=== PATIENT | female | born 1960 | race Caucasian/White ===

== ENCOUNTER → 2017-06-07 | Outpatient (CLI) | payer BC ==
--- NOTE | 2017-06-07 12:09 | EST ---
EXERCISE STRESS AGE: 56 SEX: F HT: 61" WT: 130 PROTOCOL: Joseph Stress Test STAGE: II DURATION OF EXERCISE: 7:36 HEART RATE REST: 80 BLOOD PRESSURE REST: 117/81 MAXIMUM HEART RATE ACHIEVED: 163 MAXIMUM BLOOD PRESSURE: 115/67 85% MPHR: 140 100% MPHR: 165 INDICATIONS: Chest pain. CLINICAL INFORMATION: Baseline rhythm is a sinus mechanism, rate of 80, normal axis and intervals, nonspecific ST-T wave changes. Baseline blood pressure 117/81 mmHg. Patient exercised on Joseph protocol for 7 minutes 36 seconds reaching peak rate of 163 beats per minute, which is equal to 98% maximum predicted heart rate. Peak blood pressure 115/67 mmHg. Test was terminated due to fatigue. There was no chest pain. Electrocardiograph monitoring revealed no evidence of diagnostic ischemic ST deviation. CONCLUSION: 1. Average exercise tolerance. 2. Nondiagnostic electrocardiographic stress testing secondary to baseline EKG abnormality. MMODL / IJN: [id number] /
--- NOTE | 2017-06-08 09:59 | MM ---
Reason for exam: screening (asymptomatic). Last mammogram was performed 1 year and 10 months ago. History: Patient is postmenopausal. Family history of premenopausal breast cancer in sister at age 43. Physical Findings: A clinical breast exam by your physician is recommended on an annual basis and results should be correlated with mammographic findings. MG Screening Mammo w CAD Bilateral CC and MLO view(s) were taken. Prior study comparison: July 23, 2015, bilateral MG 3d work up w/cad JUSTO. July 11, 2015, bilateral MG screening mammo w CAD. There are scattered fibroglandular densities. There is no discrete abnormality. ASSESSMENT: Negative, BI-RAD 1 RECOMMENDATION: Routine screening mammogram of both breasts in 1 year.
== END | disposition home or self-care (01) ==
LOC: RADMAMWWP 10:02
PROVIDERS: ATTEND Family Medicine
DX: Z12.31 Encounter for screening mammogram for malignant neoplasm of breast (principal); R07.89 Other chest pain
CPT/HCPCS: 77067; 93017

== ENCOUNTER → 2018-06-21 | Outpatient (CLI) | payer BC ==
--- NOTE | 2018-06-21 10:33 | BD ---
EXAMINATION TYPE: Axial Bone Density DATE OF EXAM: 06/21/2018 Comparison: Prior DEXA bone scan July 11, 2015 CLINICAL HISTORY: Age-related osteoporosis per order. Height: 135 Weight: 61 FRAX RISK QUESTIONS: Alcohol (3 or more units per day): no Family History (Parent hip fracture): no Glucocorticoids (More than 3mos): no (Ex: prednisone, prednisolone, methylprednisolone, dexamethasone, and hydrocortisone). History of Fracture in Adulthood: no Secondary Osteoporosis: 1. Type 1 Diabetes: no 2. Hyperthyroidism: no 3. Menopause before 45: no, at age 46 4. Malnutrition: no 5. Chronic liver disease: no Rheumatoid Arthritis: no Current Tobacco Use: no RISK FACTORS HISTORY OF: History of Wrist Fracture: patient thinks bilateral "arms When: as very young child Family History of Osteoporosis: not to patient's knowledge Active: yes Diet low in dairy products/other sources of calcium: no Postmenopausal woman: yes Take estrogen and/or progesterone medications: no Lost more than 2 inches in height since high school: no Frequent falls: no Poor Health: no Hyperparathyroidism: no Adrenal Insufficiency: no MEDICATIONS: Thyroid Medications: no Osteoporosis Medications: not now Which medication: unsure How Long: about 6 months on & off Additional Medications: Vitamin D Additional History: EXAM MEASUREMENTS: Bone mineral densitometry was performed using the [employer] System. Bone mineral density as measured about the Lumbar spine is: ----- L1-L4(G/cm2): 0.948 T Score Values are as follows: ----- L2: -2.6 ----- L3: -1.6 ----- L4: -2.2 ----- L1-L4: -1.9 Bone mineral density has: Decreased -3.3% since study of: 07/11/2015 Bone mineral density about the R hip (g/cm2): 0.644 Bone mineral density about the L hip (g/cm2): 0.659 T Score values are as follows: -----R Neck: -2.8 -----L Neck: -2.7 -----R Total: -2.3 -----L Total: -2.3 Bone mineral density has: Increased 0.1% since study of: 07/11/2015 IMPRESSION: Osteoporosis (T Score less than -2.5) femoral neck level in both hips. There is increased fracture risk and therapy is usually indicated based on age. Re-Screen 1-2 years. NOTE: T-SCORE=SD OF THE YOUNG ADULT MEAN.
--- NOTE | 2018-06-21 10:41 | US ---
EXAMINATION TYPE: US abdomen complete DATE OF EXAM: 06/21/2018 COMPARISON: NONE CLINICAL HISTORY: K80.20 CALCULUS OF GALLBLADDERW/O OBSTRUCTION. EXAM MEASUREMENTS: Liver Length: 12.2 cm Gallbladder Wall: 0.1 cm CBD: 0.3 cm Spleen: 7.8 cm Right Kidney: 10.5 x 5.1 x 4.1 cm Left Kidney: 9.5 x 4.9 x 4.8 cm Pancreas: Tail obscured by overlying bowel gas Liver: wnl Gallbladder: large gallstone with some probable small stones as well, no wall thickening Evidence for sonographic Howe's sign: CBD: wnl Spleen: not well visualized, obscured by tight intercostal spaces and overlying bowel gas Right Kidney: wnl Left Kidney: echogenic foci, does not shadow measuring 0.4 x 0.2 x 0.5cm Upper IVC: wnl Abd Aorta: wnl The visualized liver is homogenous. The intrahepatic portion of the IVC and visualized abdominal aor ta are within normal limits. Gallbladder is seen with large shadowing mobile gallstone. No pericholec ystic fluid or abnormal gallbladder wall thickening is present. Common bile duct is unremarkable. Th e visualized portions of the pancreas are homogenous. The spleen is unremarkable. Kidneys are symme tric and free of hydronephrosis. Left kidney shows 4 mm nonshadowing hyperechoic focus could reflect nonobstructing renal calculus. IMPRESSION: Single gallstone without secondary ultrasound evidence for acute cholecystitis.
--- NOTE | 2018-06-22 10:24 | MM ---
Reason for exam: screening (asymptomatic). Last mammogram was performed 1 year ago. History: Patient is postmenopausal. Family history of premenopausal breast cancer in sister at age 43. Physical Findings: A clinical breast exam by your physician is recommended on an annual basis and results should be correlated with mammographic findings. MG Screening Mammo w CAD Bilateral CC and MLO view(s) were taken. Prior study comparison: June 07, 2017, bilateral MG screening mammo w CAD. July 23, 2015, bilateral MG 3d work up w/cad [facility]O. There are scattered fibroglandular densities. No significant changes when compared with prior studies. ASSESSMENT: Benign, BI-RAD 2 RECOMMENDATION: Routine screening mammogram of both breasts in 1 year.
== END ==
LOC: RADUSWWP 08:09
PROVIDERS: ATTEND Family Medicine
DX: Z12.31 Encounter for screening mammogram for malignant neoplasm of breast (principal); M81.0 Age-related osteoporosis without current pathological fracture; K80.20 Calculus of gallbladder without cholecystitis without obstruction
CPT/HCPCS: 76700; 77067; 77080

== ENCOUNTER → 2018-06-29 | Outpatient (CLI) | payer BC ==
--- NOTE | 2018-06-30 08:56 | NM ---
Nuclear medicine hepatobiliary scan. HISTORY: Pain. DOSAGE: The patient received 8 ounces of ensure plus and 5.2 mCi of Technetium 99m Choletec. FINDINGS: There is normal hepatic extraction. The gallbladder is seen by 90 minutes. There is bilia ry to bowel clearance by 20 minutes. Ejection fraction is unable to be calculated. IMPRESSION: 1. There is delay in visualization of the gallbladder correlate for cholecystitis.
== END ==
LOC: RADNMMAIN 14:39
PROVIDERS: ATTEND Family Medicine
DX: K80.20 Calculus of gallbladder without cholecystitis without obstruction (principal)
CPT/HCPCS: 78226; A9537

== ENCOUNTER → 2020-09-05 | Outpatient (CLI) | payer BC ==
--- NOTE | 2020-09-06 13:15 | MM ---
Reason for exam: screening (asymptomatic). Last mammogram was performed 2 years and 2 months ago. History: Patient is postmenopausal. Family history of premenopausal breast cancer in sister at age 43. Physical Findings: A clinical breast exam by your physician is recommended on an annual basis and results should be correlated with mammographic findings. MG Screening Mammo w CAD Bilateral CC and MLO view(s) were taken. Prior study comparison: June 21, 2018, bilateral MG screening mammo w CAD. June 07, 2017, bilateral MG screening mammo w CAD. The breast tissue is heterogeneously dense. This may lower the sensitivity of mammography. There is no discrete abnormality. No significant changes when compared with prior studies. ASSESSMENT: Negative, BI-RAD 1 RECOMMENDATION: Routine screening mammogram of both breasts in 1 year.
== END | disposition home or self-care (01) ==
LOC: RADMAMWWP 09:53
PROVIDERS: ATTEND Family Medicine
DX: Z12.31 Encounter for screening mammogram for malignant neoplasm of breast (principal); Z78.0 Asymptomatic menopausal state; Z80.3 Family history of malignant neoplasm of breast
CPT/HCPCS: 77067

== ENCOUNTER → 2021-07-21 | Outpatient (CLI) | payer BC ==
--- NOTE | 2021-07-21 19:31 | BD ---
EXAMINATION TYPE: Axial Bone Density DATE OF EXAM: 07/21/2021 COMPARISON: 2019 CLINICAL HISTORY: 60 year old Female. ICD-10 CODE: Z13.820 Height: 61 Weight: 129.0 FRAX RISK QUESTIONS: Alcohol (3 or more units per day): no Family History (Parent hip fracture): no Glucocorticoids (More than 3mos): no (Ex: prednisone, prednisolone, methylprednisolone, dexamethasone, and hydrocortisone). History of Fracture in Adulthood: no Secondary Osteoporosis: 1. Type 1 Diabetes: no 2. Hyperthyroidism: no 3. Menopause before 45: no 4. Malnutrition: no 5. Chronic liver disease: no Rheumatoid Arthritis: no Current Tobacco Use: no RISK FACTORS HISTORY OF: History of Wrist Fracture: yes When: as a child Surgery to Spine/Hip(right/left)/Wrist (right/left): no Family History of Osteoporosis: no Active: yes Diet low in dairy products/other sources of calcium: no Postmenopausal woman: yes Lost more than 2 inches in height since high school: no Additional History: EXAM MEASUREMENTS: Bone mineral densitometry was performed using the [employer] System. Bone mineral density as measured about the Lumbar spine is: ----- L1-L4(G/cm2): 0.952 T Score Values are as follows: ----- L1: -1.9 ----- L2: -2.4 ----- L3: -1.5 ----- L4: -1.9 ----- L1-L4: -1.9 Bone mineral density has: increased 2.0 % since study of: 06.21.2018 Bone mineral density about the R hip (g/cm2): 0.646 Bone mineral density about the L hip (g/cm2): 0.658 T Score values are as follows: -----R Neck: -2.8 -----L Neck: -2.7 -----R Total: -2.3 -----L Total: -2.2 Bone mineral density has: increased 0.6 % since study of: 06.21.2018 FRAX%s: The graph provided illustrates a 13.3% chance for a major osteoporotic fx and a 3.2% chance f or the hips probability for fx in 10 years time. IMPRESSION: Osteoporosis (T Score less than -2.5). There is increased fracture risk and therapy is usually indicated based on age. Re-Screen 1-2 years. NOTE: T-SCORE=SD OF THE YOUNG ADULT MEAN.
== END | disposition home or self-care (01) ==
LOC: RADBDWWP 09:51
PROVIDERS: ATTEND Family Medicine
DX: M81.0 Age-related osteoporosis without current pathological fracture (principal)
CPT/HCPCS: 77080

== ENCOUNTER 2022-07-07 06:47 | Day surgery (SDC) | payer BC ==
[2022-07-06 10:58] VITALS: BMI 24.5
[~2022-07-07 06:47] MED LIST: LACTATED RINGERS 1,000 ML IV SCH; LIDOCAINE 1% (10MG/ML) FOR IV START INTRADERMA PRN
[2022-07-07 07:23] VITALS: RESP 16; TEMP 97.3
[2022-07-07] MEDS ORDERED: PROPOFOL 10 MG/ML 20 ML VIAL IV ONE (08:18)
--- NOTE | 2022-07-07 08:37 | P.PCN ---
Date of Procedure: 07/07/22 Procedure(s) Performed: BRIEF HISTORY: Patient is a 61-year-old pleasant white female scheduled for an elective colonoscopy as a part of screening for colon cancer and family history of colon cancer. Father was diagnosed with colon cancer at age 60. PROCEDURE PERFORMED: Colonoscopy. PREOPERATIVE DIAGNOSIS: Screening for colon cancer/family history of colon cancer. IV sedation per Anesthesia. PROCEDURE: After informed consent was obtained, the patient, was brought into the endoscopy unit. IV sedation was administered by Anesthesia under continuous monitoring. Digital rectal examination was normal. Initially the Olympus CF-160 flexible video colonoscope was then inserted in the rectum, gradually advanced into the cecum without any difficulty. Careful examination was performed as the scope was gradually being withdrawn. Ileocecal valve and the appendiceal orifice were visualized and appeared normal. Prep was excellent. Mucosa of the cecum, ascending colon, transverse colon, descending colon, sigmoid colon, and rectum appeared normal. Retroflexion was performed in the rectum and no lesions were seen. The patient tolerated the procedure well. IMPRESSION: Normal-appearing colon from rectum to cecum with no evidence of colorectal neoplasia. RECOMMENDATIONS: Findings of this examination were discussed with the patient as well as his family. She was advised to have a repeat screening colonoscopy every 5 years because of the family history of colon cancer..
[2022-07-07 08:56] VITALS: BP 104/57; PULSE 98
== END 2022-07-07 09:12 ==
LOC: ORWHC2ENDO 06:47
PROVIDERS: ATTEND Internal Medicine Gastroenterology
DX: Z12.11 Encounter for screening for malignant neoplasm of colon (principal); Z80.0 Family history of malignant neoplasm of digestive organs; Z88.8 Allergy status to other drugs, medicaments and biological substances
CPT/HCPCS: 45378; J2704

== ENCOUNTER → 2023-11-09 | Outpatient (CLI) | payer BC ==
--- NOTE | 2023-11-14 16:03 | MM ---
Reason for Exam: Screening (asymptomatic). Last mammogram was performed 1 year(s) and 5 month(s) ago. Patient History: Menarche at age 13. First Full-Term at age 19. Postmenopausal. Sister had breast cancer, age 43. Risk Values: Shante 5 year model risk: 2.8%. NCI Lifetime model risk: 12.5%. Prior Study Comparison: 06/21/2018 Bilateral Screening Mammogram, [facility]. 09/05/2020 Bilateral Screening Mammogram, [facility]. 05/29/2022 Bilateral MG screening mammo w CAD, [facility]. Tissue Density: There are scattered areas of fibroglandular density. Findings: Analyzed By CAD. The pattern is symmetrical. Pattern appears symmetrical and stable. No interval change. No suspicious groups of microcalcifications, spiculated or lobular masses, architectural distortion or other secondary signs of malignancy are mammographically apparent. Overall Assessment: Benign, BI-RAD 2 Management: Screening Mammogram of both breasts in 1 year. A negative mammogram report should not preclude additional follow up of suspicious palpable abnormalities. Patient should continue monthly self breast exam. A clinical breast exam by your physician is recommended on an annual basis and results should be correlated with mammographic findings. Note on Shante scores and lifetime risk: 1. A Shante score greater than 3% is considered moderate risk. If this is the case, consider specialist referral to assess eligibility for a risk reducing agent. 2. If overall lifetime risk for the development of breast cancer is 20% or higher, the patient may qualify for future screening with alternating mammogram and breast MRI. Electronically signed and approved by: Danny Cha D.O. Radiologis
== END | disposition home or self-care (01) ==
LOC: RADMAMWWP 14:39
PROVIDERS: ATTEND Family Medicine
DX: Z12.31 Encounter for screening mammogram for malignant neoplasm of breast (principal); M81.0 Age-related osteoporosis without current pathological fracture; R92.323 Mammographic fibroglandular density, bilateral breasts; Z78.0 Asymptomatic menopausal state; Z80.3 Family history of malignant neoplasm of breast
CPT/HCPCS: 77067

== ENCOUNTER → 2023-11-24 | Outpatient (CLI) | payer BC ==
--- NOTE | 2023-11-24 12:56 | BD ---
EXAMINATION TYPE: Axial Bone Density DATE OF EXAM: 11/24/2023 CLINICAL HISTORY: 63 years old Female. ICD-10 CODE: M81.0 Age related osteoporosis without current p athologic fr Height: 60.2 in Weight: 126 lbs pt states at age of [age] she fx her humerus. MEDICATIONS: Osteoporosis Medications: not now Which medication: Fosamax How Long: took for a couple months EXAM MEASUREMENTS: Bone mineral densitometry was performed using the [employer] System. Bone mineral density as measured about the Lumbar spine is: ----- L1-L4(G/cm2): 0.961 T Score Values are as follows: ----- L1: -1.9 ----- L2: -2.6 ----- L3: -1.1 ----- L4: -2.0 ----- L1-L4: -1.8 Z Score Values are as follows: ----- L1: -0.2 ----- L2: -0.9 ----- L3: 0.6 ----- L4: -0.4 ----- L1-L4: -0.2 Bone mineral density has: Increased 0.9% since study of: 07/21/2021 Bone mineral density about the R hip (g/cm2): 0.711 Bone mineral density about the L hip (g/cm2): 0.684 T Score values are as follows: -----R Neck: -2.9 -----L Neck: -3.0 -----R Total: -2.4 -----L Total: -2.6 Z Score values are as follows: -----R Neck: -1.4 -----L Neck: -1.5 -----R Total: -1.1 -----L Total: -1.3 Bone mineral density has: Decreased -3.9% since study of: 07/21/2021 FRAX%s: The graph provided illustrates a 15.3% chance for a major osteoporotic fx and a 4.2% chance f or the hips probability for fx in 10 years time. IMPRESSION: Osteoporosis (T Score less than -2.5). There is increased fracture risk and therapy is usually indicated based on age. Re-Screen 1-2 years. NOTE: T-SCORE=SD OF THE YOUNG ADULT MEAN.
== END | disposition home or self-care (01) ==
LOC: RADBDWWP 09:49
PROVIDERS: ATTEND Family Medicine
DX: M85.89 Other specified disorders of bone density and structure, multiple sites (principal); M81.0 Age-related osteoporosis without current pathological fracture
CPT/HCPCS: 77080